=== PATIENT | female | born 1990 | race Caucasian/White ===

== ENCOUNTER 2016-04-10 15:31 | Emergency (ER) | payer MEDICAID, MEDICARE ==
--- NOTE | 2016-04-10 15:42 | Emergency Department Record ---
History of Present Illness - General Chief Complaint: Abdominal Pain Stated Complaint: LOWER ABD PAIN Time Seen by Provider: 04/10/16 15:41 Source: Patient Mode of Arrival: Ambulatory Limitations: No limitations - History of Present Illness Initial Comments: The patient is here due to a sharp pelvic pain off and on for about a week. The pain comes and goes and she also has had a vaginal discharge. There has been nausea but no vomiting, diarrhea or fevers. The patient has had a hx of an ovarian cyst. Presently the pain has resolved. MD Complaint: Abdominal pain Onset/Timin -: Week(s) Location: LLQ, RLQ Radiation: None Migration to: No migration Severity: Mild Quality: Sharp Consistency: Constant Improves With: Nothing Worsens With: Nothing Associated Symptoms: Nausea - Related Data LMP Date: 03/17/16 Patient : (unsure) Previous Rx's Medication Instructions Recorded Naproxen [Naprosyn] 250 mg PO BID #14 tablet 04/10/16 Allergies Allergy/AdvReac Type Severity Reaction Status Date / Time No Known Drug Allergies Allergy Verified 04/10/16 15:41 Travel Screening - Travel/Exposure Within Last 30 Days Have you traveled within the last 30 days?: No Review of Systems Constitutional: Denies: Chills, Fever Eyes: Denies: Eye discharge ENT: Denies: Congestion Respiratory: Denies: Cough, Dyspnea Past Medical History - SOCIAL HISTORY Smoking Status: Never smoker Alcohol Use: Occassional Drug Use: None - RESPIRATORY Hx Respiratory Disorders: No - CARDIOVASCULAR Hx Cardio Disorders: No - NEURO Hx Neuro Disorders: No - GI Hx GI Disorders: No - Hx Genitourinary Disorders: Yes Comment:: ovarian cyst - ENDOCRINE Hx Endocrine Disorders: No - MUSCULOSKELETAL Hx Musculoskeletal Disorders: No - PSYCH Hx Psych Problems: No - HEMATOLOGY/ONCOLOGY Hx Hematology/Oncology Disorders: No Family Medical History Any Significant Family History?: No Physical Exam - General General Appearance: Alert, Oriented x3, Cooperative, No acute distress - Head Head exam: Atraumatic, Normocephalic, Normal inspection - Eye Eye exam: Normal appearance, PERRL - Neck Neck exam: Normal inspection, Full ROM. negative: Tenderness - Respiratory Respiratory exam: Normal lung sounds bilaterally. negative: Respiratory distress - Cardiovascular Cardiovascular Exam: Regular rate, Normal rhythm, Normal heart sounds - GI/Abdominal GI/Abdominal exam: Soft, Normal bowel sounds. negative: Guarding, Organomegaly , Pulsatile mass, Rebound, Rigid, Tenderness - exam: Normal bimanual exam, Normal external exam, Normal speculum exam. negative: Abnormal external exam, Adnexal mass (L), Adnexal mass (R), Adnexal tenderness (L), Adnexal tenderness (R), Cervical discharge, cervical motion tenderness, Enlarged uterus, Vaginal bleeding, Vaginal discharge, Vaginal erythema - Extremities Extremities exam: Normal inspection, Full ROM, Normal capillary refill. negative: Tenderness Course Vital Signs 04/10/16 15:36 Temperature 98.2 F Pulse Rate 70 Respiratory 18 Rate Pulse Ox 100 - Reevaluation(s) Reevaluation #1: The patient is resting comfortably. She denies any pain at this time. She is concerned about an ovarian cyst so we will order a pelvic US to R/O that problem. 04/10/16 17:14 Reevaluation #2: The patient is doing very well at this time. She denies any pain presently and is walking with no discomfort. I did explain the US to her and the need for Naprosyn for pain. She is to see her PCP if not better next week. 04/10/16 18:20 Medical Decision Making - Data Complexity MDM Data: Labs Ordered and/or Reviewed, X-Ray Ordered and/or Reviewed - Lab Data Result diagrams: 04/10/16 16:15 04/10/16 16:15 - Radiology Data Radiology results: Report reviewed (Pelvic US: Mild free fluid and possible remnant of an ovarian cyst on the L. No acute problems.) Disposition Disposition: Discharge Clinical Impression: Cyst of ovary Qualifiers: Laterality: left Qualified Code(s): N83.202 - Unspecified ovarian cyst, left side Disposition: Home, Self-Care Condition: (1) Good Instructions: Ovarian Cyst (ED) Additional Instructions: Please take the Naprosyn for pain. Pelvic rest please until better. Please see your PCP if not better by Wednesday. Return to the ER for any increased pain, fever , or vomiting. Prescriptions: Naproxen [Naprosyn] 250 mg PO BID #14 tablet Forms: Patient Portal Access Time of Disposition: 18:23
[2016-04-10 16:19] LABS: URINE APPEARANCE SL CLOUDY; URINE BILIRUBIN NEGATIVE (NEGATIVE); URINE BLOOD NEGATIVE (NEGATIVE); URINE COLOR YELLOW; URINE GLUCOSE (UA) NEGATIVE (NEGATIVE); URINE KETONE NEGATIVE (NEGATIVE); URINE LEUKOCYTE ESTERASE NEGATIVE (NEGATIVE); URINE NITRITE NEGATIVE (NEGATIVE); URINE PROTEIN NEGATIVE (NEGATIVE); URINE UROBILINOGEN 0.2 E.U./dL (0.20 - 1.00)
[2016-04-10 16:20] LABS: HCG,QUALITATIVE URINE NEGATIVE (NEGATIVE)
[2016-04-10 16:24] LABS: BASO % 0.2 % (0-6); HEMATOCRIT 40.8 % (35.0-47.0); HEMOGLOBIN 13.6 gm/dl (11.6-16.0); LYMPH % 36.9 % (16-45); MEAN CELL VOLUME 93.6 fl (81-97); MEAN CORPUSCULAR HEMOGLOBIN 31.2 pg (27-33); MEAN CORPUSCULAR HGB CONC 33.3 g/dl (32-36); MEAN PLATELET VOLUME 10.3 fl (7.4-10.4); MONO % 7.9 % (0-9); PLATELET COUNT 199 K/uL (130-400); RED BLOOD COUNT 4.36 M/uL (3.80-5.40); RED CELL DISTRIBUTION WIDTH 12.2 % (11.5-14.5); WHITE BLOOD COUNT W/O DIFF 8.1 K/uL (4.2-12.2)
[2016-04-10 16:37] LABS: ANION GAP 8.6 (7-16); BLOOD UREA NITROGEN 15 mg/dL (7-17); CARBON DIOXIDE 26.4 mmol/L (22-30); CREATININE 0.8 mg/dL (0.52-1.04); EST GLOMERULAR FILTRATION RATE > 60 ml/min; GLUCOSE,RANDOM 76 mg/dL (70-110)
[2016-04-13 18:42] LABS: GC SPECIMEN TYPE Vaginal (())
--- NOTE | 2016-04-15 08:19 | ULTRASOUND REPORT ---
EXAM: ULTRASOUND EXAMINATION OF THE PELVIS HISTORY: PATIENT HAS ACUTE PELVIC PAIN. TECHNIQUE: Real-time khan scale and Duplex Doppler ultrasound examination of the pelvis was performed. No comparison studies are available. FINDINGS: The uterus measures 7.06 cm in length x 3.2 cm in AP dimension x 3.38 cm in transverse dimension. The contour, size and echotexture of the uterus is within normal limits. The endometrial stripe measures 1.1 cm (normal being less than or equal to 13 mm). The right ovary measures 3.2 cm x 1.4 cm x 2.3 cm. The left ovary measures 2.6 cm x 1.5 cm x 2.7 cm. The contour, size, and echotexture of both ovaries are within normal limits. Flow to both ovaries are within normal limits. Occasional small follicles are identified within the right ovary. There is a crenulated cyst within the left ovary. There is moderate free fluid within the posterior cul-de-sac and left adnexal region. These findings suggest hemorrhagic ovarian cyst. IMPRESSION: FINDINGS SUGGESTIVE OF A LEFT HEMORRHAGIC OVARIAN CYST. JOB NUMBER: [id number] MTDD
== END 2016-04-10 18:38 | disposition home or self-care (01) ==
LOC: ER 15:31
DX: N83.202 Unspecified ovarian cyst, left side (principal); R11.0 Nausea; R42 Dizziness and giddiness
CPT/HCPCS: 99284 ×2; 85025; 80048; 81003; 81025; 76856; 76830; Q0111; 87210